=== PATIENT | male | born 1985 | race Caucasian/White ===

== ENCOUNTER 2024-04-12 11:38 | Inpatient (IN) | payer MEDICAID ==
[~2024-04-12] VITALS: Ht 175.3 cm; Wt 62.1 kg
[~2024-04-12 11:38] MED LIST: ALBU18HF2 INH; FLUT16SP26 BOTHNARES; INSU100V36 SQ; INSU100V9 SQ; LISI10TA27 PO; OMEP20CA15 PO; PHEN100C4 PO; PROM25TA14 PO
[2024-04-12] MEDS: dextrose 50%-water 50ml dispensing syringe IV ONE (12:19)
[2024-04-12 12:54] LABS: BASOPHILS % (AUTO) 0.2 % (0-1); EOSINOPHILS % (AUTO) 0.2 % (0-6); HEMATOCRIT 31.7 % (42.0-52.0); HEMOGLOBIN 10.6 g/dl (14.0-17.9); LYMPHOCYTES # (AUTO) 1.1 X10'3 (1.1-4.8); LYMPHOCYTES % (AUTO) 7.2 % (21-51); MEAN CORPUSCULAR HEMOGLOBIN 32.7 PG (27.0-31.0); MEAN CORPUSCULAR HGB CONC 33.3 g/dL (33.0-36.5); MEAN CORPUSCULAR VOLUME 98.2 FL (78-98); MEAN PLATELET VOLUME 7.2 FL (7.4-10.4); MONOCYTES # (AUTO) 0.6 X10'3 (0-0.9); MONOCYTES % (AUTO) 3.6 % (2-12); NEUTROPHILS # (AUTO) 13.6 X10'3 (1.8-7.7); NEUTROPHILS % (AUTO) 88.8 % (42-75); PLATELET COUNT 497 X10'3 (140-440); RED BLOOD COUNT 3.23 X10'6 (4.70-6.10); RED CELL DISTRIBUTION WIDTH 12.6 % (11.5-14.5); WHITE BLOOD COUNT 15.3 X10'3 (4.5-11.0)
[2024-04-12 13:11] LABS: ALANINE AMINOTRANSFERASE 23 U/L (12-78); ALBUMIN 3.8 G/DL (3.4-5.0); ALKALINE PHOSPHATASE 84 IU/L (46-116); ANION GAP 22 (8-16); ASPARTATE AMINO TRANSFERASE 15 U/L (10-37); BILIRUBIN,TOTAL 0.2 MG/DL (0.1-1.0); BLOOD UREA NITROGEN 96 MG/DL (7-18); BUN/CREATININE RATIO 20.4 (10.0-20.0); CALCIUM 8.4 MG/DL (8.5-10.1); CHLORIDE 87 MMOL/L (99-107); CREATININE 4.71 MG/DL (0.60-1.10); GLUCOSE 124 MG/DL (70-104); LIPASE 177 U/L (16-77); POTASSIUM 3.1 MMOL/L (3.5-5.1); SODIUM 124 MMOL/L (135-145); TOTAL PROTEIN 7.7 G/DL (6.4-8.2); eCRCL 19 ML/MIN; eGFR 14 ML/MIN
[2024-04-12] MEDS: normal saline 1000ml 1,000 ML IV ONE (13:20)
[2024-04-12 13:26] LABS: TOTAL CARBON DIOXIDE 14.7 MMOL/L (24-32)
[2024-04-12] MEDS: ondansetron/PF 4mg/2ml inj IV ONE (14:04)
[2024-04-12] MEDS: morphine 4 MG/ML inj SYRINge IV ONE ×2 (14:04→14:19)
[2024-04-12 15:32] LABS: BILIRUBIN,URINE NEGATIVE (Neg); CLARITY,URINE CLEAR (Clear); COLOR,URINE STRAW (Yellow); GLUCOSE, URINE 100 mg/dl (Neg); KETONES,URINE NEGATIVE (Neg); LEUKOCYTE ESTERASE ,URINE NEGATIVE (Neg); NITRITES, URINE NEGATIVE (Neg); OCCULT BLOOD,URINE TRACE-INTACT (Neg); PROTEIN,URINE 100 mg/dl (Neg); UROBILINOGEN,URINE 0.2 E.U/dL (0.2-1.0)
[2024-04-12 15:42] LABS: UA COLLECTION TYPE VOIDED
[2024-04-12 15:43] LABS: RBC,URINE 0-2 /HPF (0-2); WBC,URINE 0-4 /HPF (0-4)
[2024-04-12 15:44] LABS: BACTERIA,URINE FEW /HPF (Neg); FINE GRANULAR CAST 0-3 /LPF (NEGATIVE); MUCUS STRANDS FEW /LPF (Neg); SQUAMOUS EPITHELIAL CELL,UR NONE SEEN /LPF (FEW)
[2024-04-12] MEDS ORDERED: ondansetron/PF 4mg/2ml inj IV PRN (15:45)
[2024-04-12] MEDS ORDERED: HYDROcodone/acetaminophen 5mg/325mg tablet PO PRN (15:45)
[2024-04-12] MEDS ORDERED: mag hydrox/Alum hydrox/simeth 30ml oral suspension PO PRN (15:45)
[2024-04-12] MEDS ORDERED: potassium Cl 40MEQ/1/2NS 520ml 520 ML IV PRN (15:45)
[2024-04-12] MEDS ORDERED: magnesium sulf-water 2g/50mL 50 ML IV PRN (15:45)
[2024-04-12] MEDS ORDERED: magnesium hydroxide 30ml (MOM) UD suspension PO PRN (15:45)
[2024-04-12] MEDS ORDERED: acetaminophen 325mg tablet PO PRN ×2 (15:45)
[2024-04-12] MEDS ORDERED: potassium Cl 20 mEq SR tablet PO PRN (15:45)
[2024-04-12] MEDS ORDERED: magnesium Cl slow-release 64mg tablet PO PRN (15:45)
[2024-04-12] MEDS ORDERED: magnesium sulf-water 4G/100mL 100 ML IV PRN (15:45)
[2024-04-12] MEDS ORDERED: AMLO-140 PO (15:50)
[2024-04-12] MEDS ORDERED: AMLO5TAB PO (15:52)
[2024-04-12] MEDS ORDERED: dextrose 50%-water 50ml dispensing syringe IV PRN ×2 (15:55)
[2024-04-12] MEDS ORDERED: glucagon, human recombinant 1mg kit SUBCUT PRN (15:55)
[2024-04-12] MEDS ORDERED: DEXTROSE 15 GM of carb/4 tabs (each vial/BOTTLE has 4 tablets) PO PRN ×2 (15:55)
[2024-04-12] MEDS ORDERED: CALC0.5C2 PO (15:55)
[2024-04-12] MEDS ORDERED: PRED10TA23 PO (15:55)
[2024-04-12] MEDS ORDERED: PHO667C PO (15:58)
[2024-04-12 16:28] LABS: PROTHROMBIN TIME 9.5 SECONDS (9.0-12.0)
[2024-04-12 16:29] LABS: INR 0.9 INR
[2024-04-12 16:30] LABS: HEMOGLOBIN A1C 7.3 % (4.5-6.2)
[2024-04-12 16:34] LABS: OSMOLALITY 291 MOSM/K (280-300)
[2024-04-12 16:40] LABS: ETHANOL < 10 MG/DL (<10); PHOSPHORUS 6.4 MG/DL (2.3-4.5); PRO BRAIN NATRIURETIC PEPTIDE 316 PG/ML (0-125)
[2024-04-12] MEDS: sodium bicarbonate 1meq/ml inj 150 ML in dextrose 5%-water 1,000 ML IV SCH (16:53)
[2024-04-12 16:54] LABS: PHOSPHORUS 6.4 MG/DL (2.3-4.5)
[2024-04-12] MEDS: INSULIN LISPRO 100 UNIT/ML INSULN.PEN MULTI-DOSE SQ SCH (17:12)
[2024-04-12] MEDS ORDERED: SEVE800T8 PO (17:20)
[2024-04-12 18:00] VITALS: BP 121/79; PULSE 94; RESP 14; TEMP 98.4; O2SAT 97
[2024-04-12] MEDS: potassium Cl 20 mEq SR tablet PO PRN (18:07)
[2024-04-12] MEDS: amLODIPine 5mg tablet PO ONE (18:07)
[2024-04-12 19:37] LABS: ALBUMIN 3.4 G/DL (3.4-5.0); ANION GAP 14 (8-16); BLOOD UREA NITROGEN 91 MG/DL (7-18); BUN/CREATININE RATIO 20.4 (10.0-20.0); CALCIUM 7.8 MG/DL (8.5-10.1); CHLORIDE 90 MMOL/L (99-107); CREATININE 4.45 MG/DL (0.60-1.10); GLUCOSE 210 MG/DL (70-104); PHOSPHORUS 6.1 MG/DL (2.3-4.5); POTASSIUM 3.6 MMOL/L (3.5-5.1); SODIUM 127 MMOL/L (135-145); TOTAL CARBON DIOXIDE 23.1 MMOL/L (24-32); eCRCL 20 ML/MIN; eGFR 15 ML/MIN
[2024-04-12 20:00] VITALS: RESP 16; O2SAT 99
[2024-04-12] MEDS: fluticasone nasal spray 16GM bottle NS SCH (20:00)
[2024-04-12] MEDS: K and/or MAG REPLACEMENT MC SCH (20:00)
[2024-04-12] MEDS: docusate sod 100mg capsule PO SCH (20:00)
[2024-04-12] MEDS: normal saline 1000ml 1,000 ML IV SCH (21:30)
[2024-04-12] MEDS: insulin glargine (Lantus) pen - multi-dose SQ SCH (21:35)
[2024-04-12] MEDS: sevelamer carbonate 800mg tablet PO SCH (21:38)
[2024-04-12] MEDS: heparin, porcine 5000 units/ml vial SQ SCH (21:44)
[2024-04-12 22:00] VITALS: BP 140/86; PULSE 87; RESP 19; TEMP 97.4; O2SAT 99
[2024-04-13] VITALS (8 sets, daily range): BP systolic 128–149; BP diastolic 74–93; PULSE 79–90; RESP 13–19; TEMP 97–98.1; O2SAT 98–100
[2024-04-13 00:37] LABS: ANION GAP 15 (8-16); BLOOD UREA NITROGEN 91 MG/DL (7-18); BUN/CREATININE RATIO 21.2 (10.0-20.0); CALCIUM 7.1 MG/DL (8.5-10.1); CHLORIDE 91 MMOL/L (99-107); CREATININE 4.29 MG/DL (0.60-1.10); GLUCOSE 322 MG/DL (70-104); PHOSPHORUS 6.6 MG/DL (2.3-4.5); POTASSIUM 3.4 MMOL/L (3.5-5.1); SODIUM 128 MMOL/L (135-145); TOTAL CARBON DIOXIDE 22.4 MMOL/L (24-32); eCRCL 21 ML/MIN; eGFR 16 ML/MIN
[2024-04-13 06:30] LABS: ALANINE AMINOTRANSFERASE 15 U/L (12-78); ALBUMIN 2.9 G/DL (3.4-5.0); ALBUMIN/GLOBULIN RATIO 0.9 (1.1-1.5); ALKALINE PHOSPHATASE 73 IU/L (46-116); ANION GAP 15 (8-16); ASPARTATE AMINO TRANSFERASE 13 U/L (10-37); BILIRUBIN,TOTAL 0.2 MG/DL (0.1-1.0); BLOOD UREA NITROGEN 88 MG/DL (7-18); BUN/CREATININE RATIO 21.2 (10.0-20.0); CALCIUM 7.4 MG/DL (8.5-10.1); CHLORIDE 97 MMOL/L (99-107); CREATININE 4.16 MG/DL (0.60-1.10); GLUCOSE 180 MG/DL (70-104); MAGNESIUM 2.8 MG/DL (1.5-2.4); PHOSPHORUS 5.7 MG/DL (2.3-4.5); POTASSIUM 3.2 MMOL/L (3.5-5.1); SODIUM 133 MMOL/L (135-145); TOTAL CARBON DIOXIDE 21.2 MMOL/L (24-32); TOTAL PROTEIN 6.1 G/DL (6.4-8.2); eCRCL 21 ML/MIN; eGFR 16 ML/MIN
[2024-04-13 07:13] LABS: BASOPHILS # (AUTO) 0.1 X10'3 (0-0.2); BASOPHILS % (AUTO) 0.7 % (0-1); EOSINOPHILS # (AUTO) 0.2 X10'3 (0-0.9); EOSINOPHILS % (AUTO) 1.4 % (0-6); HEMATOCRIT 26.2 % (42.0-52.0); LYMPHOCYTES # (AUTO) 1.9 X10'3 (1.1-4.8); LYMPHOCYTES % (AUTO) 16.2 % (21-51); MEAN CORPUSCULAR HEMOGLOBIN 32.5 PG (27.0-31.0); MEAN CORPUSCULAR HGB CONC 34.2 g/dL (33.0-36.5); MEAN CORPUSCULAR VOLUME 94.9 FL (78-98); MEAN PLATELET VOLUME 7.4 FL (7.4-10.4); MONOCYTES # (AUTO) 1.2 X10'3 (0-0.9); MONOCYTES % (AUTO) 10.8 % (2-12); NEUTROPHILS # (AUTO) 8.1 X10'3 (1.8-7.7); NEUTROPHILS % (AUTO) 70.9 % (42-75); PLATELET COUNT 419 X10'3 (140-440); RED BLOOD COUNT 2.76 X10'6 (4.70-6.10); RED CELL DISTRIBUTION WIDTH 12.5 % (11.5-14.5); WHITE BLOOD COUNT 11.4 X10'3 (4.5-11.0)
[2024-04-13] MEDS: amLODIPine 5mg tablet PO SCH (07:54)
[2024-04-13 08:51] LABS: ALBUMIN 3.1 G/DL (3.4-5.0); ANION GAP 12 (8-16); BLOOD UREA NITROGEN 86 MG/DL (7-18); BUN/CREATININE RATIO 20.8 (10.0-20.0); CALCIUM 6.9 MG/DL (8.5-10.1); CHLORIDE 100 MMOL/L (99-107); CREATININE 4.14 MG/DL (0.60-1.10); GLUCOSE 147 MG/DL (70-104); PHOSPHORUS 5.9 MG/DL (2.3-4.5); POTASSIUM 3.5 MMOL/L (3.5-5.1); SODIUM 136 MMOL/L (135-145); TOTAL CARBON DIOXIDE 23.7 MMOL/L (24-32); eCRCL 22 ML/MIN; eGFR 16 ML/MIN
[2024-04-13 12:28] LABS: ALBUMIN 2.8 G/DL (3.4-5.0); ANION GAP 14 (8-16); BLOOD UREA NITROGEN 82 MG/DL (7-18); BUN/CREATININE RATIO 19.2 (10.0-20.0); CHLORIDE 96 MMOL/L (99-107); CREATININE 4.26 MG/DL (0.60-1.10); GLUCOSE 334 MG/DL (70-104); PHOSPHORUS 6.2 MG/DL (2.3-4.5); POTASSIUM 4.1 MMOL/L (3.5-5.1); SODIUM 131 MMOL/L (135-145); TOTAL CARBON DIOXIDE 20.8 MMOL/L (24-32); eCRCL 21 ML/MIN; eGFR 16 ML/MIN
[2024-04-13] MEDS: normal saline 1000ml 1,000 ML IV SCH (12:43)
[2024-04-13] MEDS: hydrocortisone 1% cream 28gm TP SCH (12:44)
[2024-04-13 17:19] LABS: ALBUMIN 3.2 G/DL (3.4-5.0); ANION GAP 13 (8-16); BLOOD UREA NITROGEN 82 MG/DL (7-18); BUN/CREATININE RATIO 17.9 (10.0-20.0); CALCIUM 7.3 MG/DL (8.5-10.1); CHLORIDE 97 MMOL/L (99-107); CREATININE 4.57 MG/DL (0.60-1.10); GLUCOSE 224 MG/DL (70-104); PHOSPHORUS 5.2 MG/DL (2.3-4.5); POTASSIUM 3.9 MMOL/L (3.5-5.1); SODIUM 132 MMOL/L (135-145); TOTAL CARBON DIOXIDE 22.2 MMOL/L (24-32); eCRCL 19 ML/MIN; eGFR 15 ML/MIN
[2024-04-13 20:33] LABS: ALBUMIN 3.2 G/DL (3.4-5.0); ANION GAP 13 (8-16); BLOOD UREA NITROGEN 82 MG/DL (7-18); BUN/CREATININE RATIO 18.6 (10.0-20.0); CHLORIDE 97 MMOL/L (99-107); GLUCOSE 228 MG/DL (70-104); PHOSPHORUS 5.3 MG/DL (2.3-4.5); POTASSIUM 3.8 MMOL/L (3.5-5.1); SODIUM 131 MMOL/L (135-145); eCRCL 20 ML/MIN; eGFR 15 ML/MIN
[2024-04-14 00:33] LABS: ALBUMIN 2.9 G/DL (3.4-5.0); ANION GAP 13 (8-16); BLOOD UREA NITROGEN 80 MG/DL (7-18); BUN/CREATININE RATIO 18.1 (10.0-20.0); CALCIUM 7.1 MG/DL (8.5-10.1); CHLORIDE 100 MMOL/L (99-107); CREATININE 4.42 MG/DL (0.60-1.10); GLUCOSE 172 MG/DL (70-104); PHOSPHORUS 7.9 MG/DL (2.3-4.5); POTASSIUM 3.4 MMOL/L (3.5-5.1); SODIUM 134 MMOL/L (135-145); TOTAL CARBON DIOXIDE 20.6 MMOL/L (24-32); eCRCL 20 ML/MIN; eGFR 15 ML/MIN
[2024-04-14 02:00] VITALS: BP 124/71; PULSE 83; RESP 19; TEMP 97; O2SAT 99
[2024-04-14 06:00] VITALS: BP 129/77; PULSE 70; RESP 16; TEMP 98.7; O2SAT 99
[2024-04-14 06:25] LABS: BASOPHILS # (AUTO) 0.1 X10'3 (0-0.2); BASOPHILS % (AUTO) 0.9 % (0-1); EOSINOPHILS # (AUTO) 0.6 X10'3 (0-0.9); EOSINOPHILS % (AUTO) 4.5 % (0-6); HEMATOCRIT 26.3 % (42.0-52.0); LYMPHOCYTES # (AUTO) 1.8 X10'3 (1.1-4.8); LYMPHOCYTES % (AUTO) 14.5 % (21-51); MEAN CORPUSCULAR HGB CONC 34.1 g/dL (33.0-36.5); MEAN CORPUSCULAR VOLUME 96.6 FL (78-98); MEAN PLATELET VOLUME 7.1 FL (7.4-10.4); MONOCYTES # (AUTO) 1.3 X10'3 (0-0.9); MONOCYTES % (AUTO) 10.3 % (2-12); NEUTROPHILS # (AUTO) 8.7 X10'3 (1.8-7.7); NEUTROPHILS % (AUTO) 69.8 % (42-75); PLATELET COUNT 421 X10'3 (140-440); RED BLOOD COUNT 2.73 X10'6 (4.70-6.10); RED CELL DISTRIBUTION WIDTH 12.5 % (11.5-14.5); WHITE BLOOD COUNT 12.4 X10'3 (4.5-11.0)
[2024-04-14 06:39] LABS: ALANINE AMINOTRANSFERASE 23 U/L (12-78); ALKALINE PHOSPHATASE 68 IU/L (46-116); ANION GAP 10 (8-16); ASPARTATE AMINO TRANSFERASE 15 U/L (10-37); BILIRUBIN,TOTAL 0.2 MG/DL (0.1-1.0); BLOOD UREA NITROGEN 76 MG/DL (7-18); BUN/CREATININE RATIO 18.9 (10.0-20.0); CALCIUM 7.5 MG/DL (8.5-10.1); CHLORIDE 104 MMOL/L (99-107); CREATININE 4.03 MG/DL (0.60-1.10); GLUCOSE 64 MG/DL (70-104); MAGNESIUM 2.2 MG/DL (1.5-2.4); PHOSPHORUS 5.1 MG/DL (2.3-4.5); POTASSIUM 3.9 MMOL/L (3.5-5.1); SODIUM 136 MMOL/L (135-145); TOTAL CARBON DIOXIDE 22.1 MMOL/L (24-32); eCRCL 22 ML/MIN; eGFR 17 ML/MIN
[2024-04-14 08:00] VITALS: RESP 16; O2SAT 98
[2024-04-14 11:00] VITALS: BP 145/85; PULSE 87; RESP 17; TEMP 98; O2SAT 100
[2024-04-14 16:07] LABS: UREA NITROGEN 24HR,URINE 7.2 GM/24HR (7-20)
[2024-04-14 16:47] LABS: TOTAL PROTEIN 24HR,URINE 2257.2 MG/24HR (28-141)
== END 2024-04-14 15:32 | disposition home or self-care (01) | DRG 469 ==
LOC: ER 11:39 → ED HOLD 15:14 → PCU 3S 18:02
PROVIDERS: ADMIT Family Medicine; ATTEND Family Medicine
DX: N17.9 Acute kidney failure, unspecified (principal); E10.649 Type 1 diabetes mellitus with hypoglycemia without coma; E10.22 Type 1 diabetes mellitus with diabetic chronic kidney disease; E83.39 Other disorders of phosphorus metabolism; E87.1 Hypo-osmolality and hyponatremia; D63.1 Anemia in chronic kidney disease; E86.0 Dehydration; E87.6 Hypokalemia; E10.65 Type 1 diabetes mellitus with hyperglycemia; N25.81 Secondary hyperparathyroidism of renal origin; F17.210 Nicotine dependence, cigarettes, uncomplicated; N18.4 Chronic kidney disease, stage 4 (severe); J45.909 Unspecified asthma, uncomplicated; I12.9 Hypertensive chronic kidney disease with stage 1 through stage 4 chronic kidney disease, or unspecified chronic kidney disease; Z79.4 Long term (current) use of insulin; Z79.899 Other long term (current) drug therapy
CPT/HCPCS: 36415; 71045; 74176; 80053; 80069; 80320; 81001; 82570; 82948; 83036; 83605; 83690; 83735; 83880; 83930; 84100; 84145; 84156; 84560; 85025; 85610; 87081; 93005; 96374; 96375; 99285; G0378; J1644; J1815; J2270; J2405; J3490; J7030; J7070

== ENCOUNTER 2024-05-03 11:29 | Emergency (ER) | payer MEDICAID ==
[~2024-05-03] VITALS: Ht 175.3 cm; Wt 62.0 kg
[~2024-05-03 11:29] MED LIST changes: -ALBU18HF2 INH; +AMLO5TAB PO; +CALC0.5C2 PO; -LISI10TA27 PO; -OMEP20CA15 PO; -PHEN100C4 PO; -PROM25TA14 PO; +SEVE800T8 PO
[2024-05-03 11:43] VITALS: BP 164/94; PULSE 84; RESP 18; TEMP 97.8; O2SAT 100
[2024-05-03 13:23] LABS: BASOPHILS # (AUTO) 0.1 X10'3 (0-0.2); BASOPHILS % (AUTO) 1.2 % (0-1); EOSINOPHILS # (AUTO) 0.4 X10'3 (0-0.9); EOSINOPHILS % (AUTO) 3.9 % (0-6); HEMATOCRIT 31.5 % (42.0-52.0); HEMOGLOBIN 11.1 g/dl (14.0-17.9); LYMPHOCYTES # (AUTO) 1.5 X10'3 (1.1-4.8); LYMPHOCYTES % (AUTO) 15.3 % (21-51); MEAN CORPUSCULAR HEMOGLOBIN 33.3 PG (27.0-31.0); MEAN CORPUSCULAR HGB CONC 35.1 g/dL (33.0-36.5); MEAN CORPUSCULAR VOLUME 94.9 FL (78-98); MEAN PLATELET VOLUME 6.9 FL (7.4-10.4); MONOCYTES # (AUTO) 0.9 X10'3 (0-0.9); MONOCYTES % (AUTO) 9.5 % (2-12); NEUTROPHILS # (AUTO) 6.8 X10'3 (1.8-7.7); NEUTROPHILS % (AUTO) 70.1 % (42-75); PLATELET COUNT 488 X10'3 (140-440); RED BLOOD COUNT 3.32 X10'6 (4.70-6.10); RED CELL DISTRIBUTION WIDTH 12.3 % (11.5-14.5); WHITE BLOOD COUNT 9.8 X10'3 (4.5-11.0)
[2024-05-03 13:50] LABS: ALANINE AMINOTRANSFERASE 24 U/L (12-78); ALBUMIN 3.9 G/DL (3.4-5.0); ALBUMIN/GLOBULIN RATIO 0.9 (1.1-1.5); ALKALINE PHOSPHATASE 110 IU/L (46-116); ANION GAP 14 (8-16); ASPARTATE AMINO TRANSFERASE 21 U/L (10-37); BILIRUBIN,TOTAL 0.4 MG/DL (0.1-1.0); BLOOD UREA NITROGEN 87 MG/DL (7-18); BUN/CREATININE RATIO 17.7 (10.0-20.0); CALCIUM 8.5 MG/DL (8.5-10.1); CHLORIDE 86 MMOL/L (99-107); CREATININE 4.91 MG/DL (0.60-1.10); GLUCOSE 86 MG/DL (70-104); POTASSIUM 3.7 MMOL/L (3.5-5.1); SODIUM 123 MMOL/L (135-145); TOTAL CARBON DIOXIDE 23.1 MMOL/L (24-32); TOTAL PROTEIN 8.3 G/DL (6.4-8.2); eCRCL 18 ML/MIN; eGFR 13 ML/MIN
[2024-05-03 13:51] LABS: AMYLASE 338 U/L (25-115)
[2024-05-03 14:47] LABS: LIPASE > 375 U/L (16-77)
== END 2024-05-03 16:04 | disposition left against medical advice (07) ==
LOC: ER 11:30
DX: R79.89 Other specified abnormal findings of blood chemistry (principal); Z53.21 Procedure and treatment not carried out due to patient leaving prior to being seen by health care provider
CPT/HCPCS: 36415; 80053; 82150; 83690; 85025